=== PATIENT | female | born 1955 | race Caucasian/White ===

== ENCOUNTER 2019-01-17 11:45 | Outpatient (CLI) | payer OTHER ==
--- NOTE | 2019-01-18 11:30 | XRAY Report ---
Reason: LOW BACK PAIN, M54.5 Procedure Date: 01/17/2019 Accession Number: [id number] / [id number] Procedure: XRS - Lumbar Spine 2 View CPT Code: FULL RESULT: EXAM: LUMBOSACRAL SPINE RADIOGRAPHY EXAM DATE: 01/17/2019 11:55 AM. CLINICAL HISTORY: Low back pain, M54. 5. COMPARISONS: None. TECHNIQUE: 3 views. FINDINGS: Alignment: Normal. No spondylolisthesis or scoliosis. Bones: 6 [id number] lumbar vertebral bodies are present. No fractures or bone lesions. Disks: Mild narrowing of the disk space heights in the lower lumbar spine. Facets: Mild to moderate bilateral hypertrophic changes in the lower lumbar spine. Sacroiliac Joints: Unremarkable. Soft Tissues: Normal. The visualized bowel gas pattern is normal. IMPRESSION: Mild to moderate degenerative changes lower lumbar spine. RADIA
== END 2019-01-17 11:46 | disposition home or self-care (01) ==
LOC: DI.S 11:45
PROVIDERS: ATTEND Naturopath
DX: M51.36 Other intervertebral disc degeneration, lumbar region (principal)
CPT/HCPCS: 72100

== ENCOUNTER 2019-02-22 10:01 | Outpatient (CLI) | payer OTHER ==
[2019-02-22 17:57] LABS: HB2 TOTAL 13.7 g/dL; HEMOGLOBIN A1C 0.54 g/dL; HEMOGLOBIN A1C % 5.8 % (4.6-6.2)
[2019-02-22 18:01] LABS: BASOPHILS % (AUTO) 0.7 %; EOSINOPHILS # (AUTO) 0.1 10^3/uL (0.0-0.7); EOSINOPHILS % (AUTO) 2.2 %; HGB - HEMOGLOBIN 13.3 g/dL (12.0-16.0); LYMPHOCYTES # (AUTO) 1.6 10^3/uL (1.5-3.5); LYMPHOCYTES % (AUTO) 28.4 %; MEAN CORPUSCULAR HEMOGLOBIN 28.8 pg (27.0-31.0); MEAN CORPUSCULAR HGB CONC 31.7 g/dL (32.0-36.0); MEAN CORPUSCULAR VOLUME 90.9 fL (81.0-99.0); MEAN PLATELET VOLUME 11.6 fL (7.9-10.8); MONOCYTES # (AUTO) 0.6 10^3/uL (0.0-1.0); MONOCYTES % (AUTO) 10.6 %; NEUTROPHILS # (AUTO) 3.2 10^3/uL (1.5-6.6); NEUTROPHILS % (AUTO) 57.6 %; PLT - PLATELET COUNT 269 10^3/uL (130-450); RED BLOOD COUNT 4.62 10^6/uL (4.20-5.40); RED CELL DISTRIBUTION WIDTH 14.6 % (12.0-15.0); WHITE BLOOD COUNT 5.6 x10^3/uL (4.8-10.8)
[2019-02-22 18:02] LABS: ALBUMIN 4.1 g/dL (3.2-5.5); ALBUMIN/GLOBULIN RATIO 1.3 (1.0-2.2); ALKALINE PHOSPHATASE 60 IU/L (42-121); ALT ALANINE AMINOTRANSFERASE 34 IU/L (10-60); AST ASPARTATE AMINOTRANSFERASE 28 IU/L (10-42); BILIRUBIN,TOTAL 0.6 mg/dL (0.2-1.0); BUN - BLOOD UREA NITROGEN 11 mg/dL (6-20); CALCIUM 9.2 mg/dL (8.5-10.3); CARBON DIOXIDE - CO2 28 mmol/L (21-32); CHLORIDE 103 mmol/L (101-111); CHOL/HDL RATIO 4.5 (<4.4); CHOLESTEROL 232 mg/dL; CREATININE 0.7 mg/dL (0.4-1.0); GFR - MDRD 85 (>89); GLUCOSE 106 mg/dL (70-100); HDL CHOLESTEROL 51 mg/dL; LDL CHOLESTEROL,CALCULATED 137 mg/dL; LDL/HDL RATIO 2.7 (<4.4); SODIUM 139 mmol/L (135-145); TOTAL PROTEIN 7.2 g/dL (6.7-8.2); VLDL CHOLESTEROL 44 mg/dL
[2019-02-22 18:08] LABS: THYROID STIMULATING HORMONE 3.27 uIU/mL (0.34-5.60)
[2019-02-22 18:10] LABS: FREE T4 (FREE THYROXINE) 0.72 ng/dL (0.58-1.64)
== END 2019-02-22 10:02 | disposition home or self-care (01) ==
LOC: LAB.S 10:01
PROVIDERS: ATTEND Naturopath
DX: Z00.00 Encounter for general adult medical examination without abnormal findings (principal); Z13.0 Encounter for screening for diseases of the blood and blood-forming organs and certain disorders involving the immune mechanism; Z13.220 Encounter for screening for lipoid disorders; Z13.1 Encounter for screening for diabetes mellitus; Z13.29 Encounter for screening for other suspected endocrine disorder
CPT/HCPCS: 36415; 80053; 80061; 83036; 83721; 84439; 84443; 84481; 85025

== ENCOUNTER 2021-03-15 14:56 | Outpatient (CLI) | payer MEDICARE ==
[2021-03-15 21:14] LABS: THYROID STIMULATING HORMONE 3.22 uIU/mL (0.34-5.60)
[2021-03-15 21:15] LABS: FREE T3 4.05 pg/mL (2.5-3.9)
[2021-03-15 21:16] LABS: FREE T4 (FREE THYROXINE) 0.72 ng/dL (0.58-1.64)
== END 2021-03-15 14:57 | disposition home or self-care (01) ==
LOC: LAB.S 14:56
PROVIDERS: ATTEND Naturopath
DX: Z13.29 Encounter for screening for other suspected endocrine disorder (principal)
CPT/HCPCS: 36415; 84439; 84443; 84481

== ENCOUNTER 2021-10-02 09:38 | Outpatient (CLI) | payer MEDICARE ==
[2021-10-02 15:04] LABS: T4 (THYROXINE) 12.23 ug/dL (6.09-12.23)
[2021-10-02 15:07] LABS: THYROID STIMULATING HORMONE 1.12 uIU/mL (0.34-5.60)
== END 2021-10-02 09:39 | disposition home or self-care (01) ==
LOC: LAB.S 09:38
PROVIDERS: ATTEND Registered Nurse
DX: E03.9 Hypothyroidism, unspecified (principal)
CPT/HCPCS: 36415; 84436; 84443; 84480

== ENCOUNTER 2021-11-04 13:08 | Outpatient (CLI) | payer MEDICARE ==
--- NOTE | 2021-11-07 07:57 | Mammography Report ---
BILATERAL DIGITAL SCREENING MAMMOGRAM 3D/2D WITH EXAGGERATED CC: 11/04/2021 CLINICAL: Routine screening. Comparison is made to exams dated: 11/02/2014 mammogram, 10/20/2014 mammogram, and 09/10/2009 mammogram - [facility]. The tissue of both breasts is predominantly fatty. No significant masses, calcifications, or other findings are seen in either breast. There has been no significant interval change. IMPRESSION: NEGATIVE There is no mammographic evidence of malignancy. A 1 year screening mammogram is recommended. This exam was interpreted at Station ID: [id number]. NOTE: For mammograms, a report in lay terms will be sent to the patient. Approximately 15% of breast malignancies will not be visualized mammographically. In the management of a palpable breast mass, a negative mammogram must not discourage biopsy of a clinically suspicious lesion. Electronically Signed By: Estrada Daniels M.D., jr/juliannerad:11/06/2021 14:21:45 ACR BI-RADS Category 1: Negative 3341F PARENCHYMAL PATTERN: (F) - The breast(s) demonstrate(s) diffuse fatty replacement. BI-RADS CATEGORY: (1) - 1 RECOMMENDATION: (ANNUAL) - Recommend routine annual screening mammography. [id number] 1 year screening LATERALITY: (B)
== END 2021-11-04 13:09 | disposition home or self-care (01) ==
LOC: DI.S 13:08
PROVIDERS: ATTEND Registered Nurse
DX: Z12.31 Encounter for screening mammogram for malignant neoplasm of breast (principal)

== ENCOUNTER 2022-06-13 09:49 | Outpatient (CLI) | payer MEDICARE ==
--- NOTE | 2022-06-13 16:30 | MRI Report ---
PROCEDURE: SHOULDER WO - RT INDICATIONS: STRAIN OF SHOULDER TECHNIQUE: Noncontrast oblique coronal T2 fast spin echo with fat saturation, oblique sagittal T1 spin echo and T2 fast spin echo with fat saturation, axial T1 spin echo and T2 fast spin echo with fat saturation t hrough the shoulder. COMPARISON: None. FINDINGS: Image quality: Excellent. Rotator cuff: There is full-thickness tearing of the entire supraspinatus tendon with medial retracti on and atrophy of the supraspinatus. There is moderate grade bursal surface and intrasubstance tearin g of the mid and anterior infraspinatus tendon at the humeral insertion site extending the muscular t endinous junction. There is moderate grade articular surface and intrasubstance tearing of the upper subscapularis tendon at the humeral insertion site extending to the muscular tendinous junction. Kathleen s minor is intact. Bones and bursae: No bone marrow contusions or fractures. Moderate glenohumeral and acromioclavicula r joint degeneration. The acromion demonstrates conventional anatomy, without an os acromiale. No p athologic subacromial/subdeltoid bursal fluid is present. Capsule and soft tissues: There is irregular high T2 signal intensity within the posterior superior l abrum. The long head of the biceps tendon demonstrates normal location and morphology. The rotator i nterval appears normal, without fibrosis. The coracohumeral ligament is normal in thickness. IMPRESSION: 1. Full-thickness tearing of the supraspinatus tendon with associated atrophy. 2. Partial-thickness tearing of the infraspinatus and subscapularis tendons. 3. Posterior superior glenoid labral tearing. 4. Acromioclavicular joint osteoarthritis. Reviewed by: David Prakash MD on 06/13/2022 4:29 PM PST Approved by: David Prakash MD on 06/13/2022 4:29 PM PST Station ID: [id number]
== END 2022-06-13 09:50 | disposition home or self-care (01) ==
LOC: DI 09:49
PROVIDERS: ATTEND Physician Assistant
DX: S46.011A Strain of muscle(s) and tendon(s) of the rotator cuff of right shoulder, initial encounter (principal); M19.011 Primary osteoarthritis, right shoulder; S43.431A Superior glenoid labrum lesion of right shoulder, initial encounter

== ENCOUNTER 2022-12-31 08:53 | Outpatient (CLI) | payer MEDICARE ==
[2022-12-31 14:45] LABS: BASOPHILS # (AUTO) 0.1 10^3/uL (0.0-0.1); BASOPHILS % (AUTO) 1.1 %; EOSINOPHILS # (AUTO) 0.2 10^3/uL (0.0-0.7); EOSINOPHILS % (AUTO) 3.8 %; HGB - HEMOGLOBIN 13.3 g/dL (12.0-16.0); LYMPHOCYTES # (AUTO) 1.9 10^3/uL (1.5-3.5); LYMPHOCYTES % (AUTO) 31.8 %; MEAN CORPUSCULAR HEMOGLOBIN 28.7 pg (27.0-31.0); MEAN CORPUSCULAR HGB CONC 31.7 g/dL (32.0-36.0); MEAN CORPUSCULAR VOLUME 90.5 fL (81.0-99.0); MEAN PLATELET VOLUME 11.2 fL (7.9-10.8); MONOCYTES # (AUTO) 0.5 10^3/uL (0.0-1.0); MONOCYTES % (AUTO) 8.2 %; NEUTROPHILS # (AUTO) 3.4 10^3/uL (1.5-6.6); NEUTROPHILS % (AUTO) 54.9 %; PLT - PLATELET COUNT 283 10^3/uL (130-450); RED BLOOD COUNT 4.64 10^6/uL (4.20-5.40); RED CELL DISTRIBUTION WIDTH 13.9 % (12.0-15.0); WHITE BLOOD COUNT 6.1 x10^3/uL (4.8-10.8)
[2022-12-31 15:55] LABS: ALBUMIN 4.3 g/dL (3.2-5.5); ALBUMIN/GLOBULIN RATIO 1.5 (1.0-2.2); ALKALINE PHOSPHATASE 65 IU/L (42-121); ALT ALANINE AMINOTRANSFERASE 24 IU/L (10-60); AST ASPARTATE AMINOTRANSFERASE 21 IU/L (10-42); BILIRUBIN,TOTAL 0.4 mg/dL (0.2-1.0); BUN - BLOOD UREA NITROGEN 15 mg/dL (6-20); CALCIUM 9.8 mg/dL (8.5-10.3); CARBON DIOXIDE - CO2 30 mmol/L (21-32); CHLORIDE 105 mmol/L (101-111); CHOL/HDL RATIO 4.6 (<4.4); CHOLESTEROL 223 mg/dL; CREATININE 0.7 mg/dL (0.6-1.3); GFR - MDRD 84 (>89); GLUCOSE 105 mg/dL (74-104); HDL CHOLESTEROL 48 mg/dL; LDL CHOLESTEROL,CALCULATED 129 mg/dL; LDL/HDL RATIO 2.7 (<4.4); SODIUM 139 mmol/L (135-145); TOTAL PROTEIN 7.2 g/dL (6.4-8.9); TRIGLYCERIDES 230 mg/dL (48-352); VLDL CHOLESTEROL 46 mg/dL
== END 2022-12-31 08:54 | disposition home or self-care (01) ==
LOC: LAB.S 08:53
PROVIDERS: ATTEND Registered Nurse
DX: E03.9 Hypothyroidism, unspecified (principal); Z79.899 Other long term (current) drug therapy; Z13.220 Encounter for screening for lipoid disorders
CPT/HCPCS: 36415; 80053; 80061; 83721; 84443; 85025

== ENCOUNTER 2024-01-01 08:20 | Outpatient (CLI) | payer MEDICARE ==
[2024-01-01 15:35] LABS: BASOPHILS # (AUTO) 0.1 10^3/uL (0.0-0.1); BASOPHILS % (AUTO) 1.2 %; EOSINOPHILS # (AUTO) 0.2 10^3/uL (0.0-0.7); EOSINOPHILS % (AUTO) 3.9 %; LYMPHOCYTES # (AUTO) 1.9 10^3/uL (1.5-3.5); LYMPHOCYTES % (AUTO) 32.2 %; MEAN CORPUSCULAR HEMOGLOBIN 28.9 pg (27.0-31.0); MEAN CORPUSCULAR HGB CONC 32.6 g/dL (32.0-36.0); MEAN CORPUSCULAR VOLUME 88.8 fL (81.0-99.0); MEAN PLATELET VOLUME 11.5 fL (7.9-10.8); MONOCYTES # (AUTO) 0.4 10^3/uL (0.0-1.0); MONOCYTES % (AUTO) 7.4 %; NEUTROPHILS # (AUTO) 3.3 10^3/uL (1.5-6.6); PLT - PLATELET COUNT 283 10^3/uL (130-450); RED BLOOD COUNT 4.84 10^6/uL (4.20-5.40); RED CELL DISTRIBUTION WIDTH 14.2 % (12.0-15.0); WHITE BLOOD COUNT 5.9 x10^3/uL (4.8-10.8)
[2024-01-01 16:38] LABS: ALBUMIN 4.4 g/dL (3.2-5.5); ALBUMIN/GLOBULIN RATIO 1.4 (1.0-2.2); ALKALINE PHOSPHATASE 66 IU/L (42-121); ALT ALANINE AMINOTRANSFERASE 24 IU/L (10-60); AST ASPARTATE AMINOTRANSFERASE 25 IU/L (10-42); BILIRUBIN,TOTAL 0.5 mg/dL (0.2-1.0); BUN - BLOOD UREA NITROGEN 11 mg/dL (6-20); CALCIUM 10.2 mg/dL (8.5-10.3); CARBON DIOXIDE - CO2 27 mmol/L (21-32); CHLORIDE 104 mmol/L (101-111); CHOL/HDL RATIO 4.5 (<4.4); CHOLESTEROL 226 mg/dL; CREATININE 0.7 mg/dL (0.6-1.3); GFR - MDRD 83 (>89); GLUCOSE 98 mg/dL (74-104); HDL CHOLESTEROL 50 mg/dL; LDL CHOLESTEROL,CALCULATED 136 mg/dL; LDL/HDL RATIO 2.7 (<4.4); POTASSIUM 4.1 mmol/L (3.5-4.5); SODIUM 140 mmol/L (135-145); TOTAL PROTEIN 7.6 g/dL (6.4-8.9); TRIGLYCERIDES 201 mg/dL; VLDL CHOLESTEROL 40 mg/dL
[2024-01-01 16:47] LABS: THYROID STIMULATING HORMONE 1.39 uIU/mL (0.34-5.60)
== END 2024-01-01 08:21 | disposition home or self-care (01) ==
LOC: LAB.S 08:20
PROVIDERS: ATTEND Registered Nurse
DX: I10 Essential (primary) hypertension (principal); E03.9 Hypothyroidism, unspecified
CPT/HCPCS: 36415; 80053; 80061; 83721; 84443; 85025

== ENCOUNTER 2024-02-09 08:28 | Day surgery (SDC) | payer MEDICARE ==
[2024-02-09 08:56] LABS: BILIRUBIN,URINE NEGATIVE (NEGATIVE); GLUCOSE, URINE (UA) NEGATIVE (NEGATIVE); KETONES,URINE (UA) 15 mg/dL (NEGATIVE); LEUKOCYTE ESTERASE, URINE NEGATIVE (NEGATIVE); NITRITE,URINE NEGATIVE (NEGATIVE); OCCULT BLOOD,URINE TRACE-LYSE (NEGATIVE); PROTEIN,URINE TRACE mg/dL (NEGATIVE); UROBILINOGEN,URINE 0.2 (NORMAL) E.U./dL (NORMAL)
[2024-02-09 08:59] LABS: CLARITY,URINE CLEAR (CLEAR)
[2024-02-09 09:00] LABS: BASOPHILS % (AUTO) 0.3 %; EOSINOPHILS # (AUTO) 0.1 10^3/uL (0.0-0.7); EOSINOPHILS % (AUTO) 0.7 %; HCT - HEMATOCRIT 41.6 % (37.0-47.0); HGB - HEMOGLOBIN 13.3 g/dL (12.0-16.0); LYMPHOCYTES # (AUTO) 1.1 10^3/uL (1.5-3.5); LYMPHOCYTES % (AUTO) 10.1 %; MEAN CORPUSCULAR HEMOGLOBIN 28.4 pg (27.0-31.0); MEAN CORPUSCULAR VOLUME 88.7 fL (81.0-99.0); MEAN PLATELET VOLUME 10.8 fL (7.9-10.8); MONOCYTES # (AUTO) 0.6 10^3/uL (0.0-1.0); MONOCYTES % (AUTO) 5.6 %; NEUTROPHILS # (AUTO) 9.2 10^3/uL (1.5-6.6); NEUTROPHILS % (AUTO) 82.8 %; PLT - PLATELET COUNT 281 10^3/uL (130-450); RED BLOOD COUNT 4.69 10^6/uL (4.20-5.40); RED CELL DISTRIBUTION WIDTH 13.5 % (12.0-15.0); WHITE BLOOD COUNT 11.1 x10^3/uL (4.8-10.8)
[2024-02-09 09:14] LABS: ALBUMIN 4.7 g/dL (3.2-5.5); ALBUMIN/GLOBULIN RATIO 1.6 (1.0-2.2); BILIRUBIN,TOTAL 0.4 mg/dL (0.2-1.0); CALCIUM 9.9 mg/dL (8.5-10.3); CREATININE 0.7 mg/dL (0.6-1.3); POTASSIUM 3.6 mmol/L (3.5-4.5); TOTAL PROTEIN 7.6 g/dL (6.4-8.9)
[2024-02-09] MEDS: KETOROLAC 30 MG/ML VIAL IVP STA (09:18)
--- NOTE | 2024-02-09 09:19 | ED Physician Documentation ---
PD HPI ABD PAIN - Stated complaint Stated Complaint: UPPER ABD PX,VOMITING - Chief complaint Chief Complaint: Abd Pain - History obtained from History obtained from: Patient, Family () - History of Present Illness Timing - onset: How many days ago (3) Timing - duration: Days (3) Timing - details: Abrupt onset, Still present, Waxing and waning Quality: Cramping, Sharp, Pain Location: Epigastric Radiation: Chest Improved by: Vomiting Worsened by: Eating, Position, Palpation Associated symptoms: Nausea Similar symptoms before: No diagnosis Recently seen: Not recently seen - Additional information Additional information: Vidya [place] is a 69-year-old female who presents with a 3-day history of epigastric pain that last 4 to 5 hours and is brought on by food. She has had an episode of this about 1 week ago and then over the last 3 days she has had another episode followed by an episode that will not resolve. She denies any significant alcohol use and states that she did remember an episode similar to this about 6 months ago as well. She has a history of reflux and does not take medication for it. Review of Systems Constitutional: denies: Fever Ears: denies: Ear pain Nose: denies: Congestion Throat: denies: Sore throat Cardiac: denies: Chest pain / pressure, Palpitations Respiratory: denies: Dyspnea, Cough GI: reports: Abdominal Pain, Nausea. 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 : None HEENT: None Psych: None Musculoskeletal: Chronic back pain Derm: None - Past Surgical History Past Surgical History: No /INSPECTOR TUBES: Breast reduction - Present Medications Home Medications: Ambulatory Orders Medication Instructions Recorded Confirmed Cyclobenzaprine [Flexeril] 10 mg PO TID PRN 02/09/24 02/09/24 Levothyroxine [Synthroid] 100 mcg PO QDAC 02/09/24 02/09/24 Lisinopril/Hydrochlorothiazide 1 each PO DAILY 02/09/24 02/09/24 [Zestoretic 10-12.5 mg Tablet] Metoprolol Tartrate [Lopressor] 25 mg PO BID 02/09/24 02/09/24 - Allergies Allergies/Adverse Reactions: Allergies Allergy/AdvReac Type Severity Reaction Status Date / Time No Known Drug Allergies Allergy Verified 02/09/24 08:33 - Social History Does the pt smoke?: No Smoking Status: Never smoker Does the pt drink ETOH?: Yes Does the pt have substance abuse?: Yes Substance Use and Type: Marijuana - Immunizations Immunizations are current?: Yes - POLST Patient has POLST: No PD ED PE NORMAL - Vitals Vital signs reviewed: Yes (hypertensive ) - General General: Alert and oriented X 3, No acute distress, Well developed/nourished - HEENT HEENT: Atraumatic, PERRL, EOMI - Neck Neck: Supple, no meningeal sign, No bony TTP - Cardiac Cardiac: RRR, No murmur - Respiratory Respiratory: No respiratory distress, Clear bilaterally - Abdomen Abdomen: Soft, Non distended, No organomegaly, Other (The patient is tender in the right upper quadrant to deep palpation and she is tender in the epigastric region as well there is no guarding associated with this tenderness.) - Back Back: No CVA TTP, No spinal TTP - Derm Derm: Normal color, Warm and dry, No rash - Extremities Extremities: No deformity, No edema - Neuro Neuro: Alert and oriented X 3, electric motor analyst 2-12 intact, No motor deficit, No sensory deficit, Normal speech Eye Opening: Spontaneous Motor: Obeys Commands Verbal: Oriented GCS Score: 15 - Psych Psych: Normal mood, Normal affect Results - Vitals Vitals: Vital Signs - 24 hr 02/09/24 02/09/24 02/09/24 08:33 09:02 10:12 Temperature 36.6 C 37.2 C Heart Rate 66 61 58 L Respiratory 18 16 16 Rate Blood Pressure 197/97 H 178/89 H 165/81 H O2 Saturation 98 96 95 02/09/24 12:11 Temperature Heart Rate 64 Respiratory 16 Rate Blood Pressure 104/70 O2 Saturation 98 Oxygen O2 Source Room air - Labs Labs: Laboratory Tests 02/09/24 02/09/24 02/09/24 08:50 08:50 08:50 WBC 11.1 H RBC 4.69 Hgb 13.3 Hct 41.6 MCV 88.7 MCH 28.4 MCHC 32.0 RDW 13.5 Plt Count 281 MPV 10.8 Neut # (Auto) 9.2 H Lymph # (Auto) 1.1 L [place] # (Auto) 0.6 Eos # (Auto) 0.1 Baso # (Auto) 0.0 Absolute Nucleated RBC 0.00 Nucleated RBC % 0.0 Sodium 137 Potassium 3.6 Chloride 101 Carbon Dioxide 28 Anion Gap 8.0 BUN 12 Creatinine 0.7 Estimated GFR (MDRD) 83 L Glucose 131 H Calcium 9.9 Total Bilirubin 0.4 AST 21 ALT 21 Alkaline Phosphatase 66 Total Protein 7.6 Albumin 4.7 Globulin 2.9 Albumin/Globulin Ratio 1.6 Lipase 22 Urine Color DARK YELLOW Urine Clarity CLEAR Urine pH 7.0 Ur Specific [place] 1.025 Urine Protein TRACE Urine Glucose (UA) NEGATIVE Urine Ketones 15 H Urine Occult Blood TRACE-LYSE Urine Nitrite NEGATIVE Urine Bilirubin NEGATIVE Urine Urobilinogen 0.2 (NORMAL) Ur Leukocyte Esterase NEGATIVE Ur Microscopic Review NOT INDICATED Urine Culture Comments NOT INDICATED - Rads (name of study) ultrasound abd lmt Relevant Findings:: Prelim report reviewed (Impression: Cholelithiasis with gallbladder wall thickening and pericholecystic fluid. Positive sonographic Logan sign. Finding is consistent with acute cholecystitis. No biliary ductal dilation. Hepatomegaly and moderate hepatic steatosis), EMP independent interpretation of test, See rad report Procedures - Bedside sono Bedside sono by EMP: With use of POCUS the right upper quadrant is imaged there is an appearance of shadowing stones and a question of some pericholecystic fluid. The gallbladder is tender to sonographic palpation Logan sign is negative. PD Medical Decision Making - ED course Complexity details: reviewed results, re-evaluated patient, considered differential, d/w patient, d/w family, d/w franchise business consultant (Dr. Baca will see patient at about noon today. If pain resolved and PO challenge keya well ) Reviewed Lab Results: We reviewed a complete blood count showing an elevated white blood cell count and normal hemoglobin hematocrit and platelets chemistries were unremarkable with normal electrolytes normal kidney and liver function. Urinalysis unremarkable with exception of ketones. These laboratory tests support the diagnosis of acute cholecystitis without signs of obtruction. They also indicate the patient's recent lack of food with elevated ketones in the urine. ED course: 69-year-old Geraldine france was diagnosed with acute cholecystitis she has improvement in her pain with the use of Toradol and the surgeon has been consulted in her case. The surgeon recommends observation after pain medication has worn off for potential of outpatient cholecystectomy. The patient continues to have pain, the surgeon evaluates the patient and arrangements are being made for surgery today. She is given a dose of cefepime and IV fliuds and requires further pain management. Departure - Departure Disposition: ED Transfer to [facility] Clinical Impression: Cholecystitis Condition: Stable Forms: PCP List
--- NOTE | 2024-02-09 10:22 | Ultrasound Report ---
PROCEDURE: Abdomen Limited INDICATIONS: RUQ pain and heart burn in episodes TECHNIQUE: Real-time focused scanning was performed of the abdomen, with image documentation. COMPARISONS: None. FINDINGS: Liver: Liver is enlarged in size and is diffusely echogenic in parenchymal echotexture. No discrete s olid appearing hepatic lesion is seen.. Gallbladder: Stones are seen in dependent portion of gallbladder lumen. There is gallbladder wall thi ckening measures up to 4.7 mm in thickness. Pericholecystic fluid is seen. Positive sonographic Rosie y's sign is noted during the exam. Biliary ducts: Intrahepatic bile ducts are non-dilated. Extrahepatic bile duct caliber measures 4.6 mm. Normal is 6-7 mm or less in diameter, or 10 mm or less post-cholecystectomy. Pancreas: Visualized portions of the pancreas are sonographically normal. Right kidney: Normal in size and echotexture. Right kidney measures 12.4 cm long. No hydronephrosis or nephrolithiasis. No solid masses. No complex renal cystic lesions which require follow-up. IVC: Intrahepatic inferior vena cava is patent. Miscellaneous: No free abdominal fluid. IMPRESSION: 1. Cholelithiasis with gallbladder wall thickening and pericholecystic fluid. Positive sonographic Mu rphy's sign. Finding is consistent with acute cholecystitis. 2. No biliary ductal dilatation. 3. Hepatomegaly and moderate hepatic steatosis. Reviewed by: Darnell Sanches MD on 02/09/2024 10:20 AM PDT Approved by: Darnell Sanches MD on 02/09/2024 10:20 AM PDT Station ID: [id number]
[2024-02-09] MEDS: SODIUM CHLORIDE 0.9% 1,000 ML IV STA (12:42)
[2024-02-09] MEDS: CEFEPIME 1 GM in SODIUM CHLORIDE 0.9% MINIBAG 100 ML IV STA (12:42)
[2024-02-09] MEDS: HYDROmorphone 1 MG/ML CARPUJECT IVP STA (12:50)
--- NOTE | 2024-02-09 12:50 | HISTORY & PHYSICAL EXAMINATION ---
HPI - Admitted From Admitted from: ED - History Obtained From History obtained from: Patient Exam limitations: No limitations - History of Present Illness HPI Comment/Other: 69yoF with 2 days of RUQ pain that is unrelenting, worst at night, and associated with nausea and emesis. Similar episode happened last week that lasted 4 hours, and maybe one other time 6 months ago. Denies fevers, some chills in the ED. Pain more tolerable with pain meds in the ED, but not resolved. 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 - Social History Does the pt smoke?: No Smoking Status: Never smoker Does the pt drink ETOH?: Yes Does the pt have substance abuse?: Yes Substance Use and Type: Marijuana - POLST Patient has POLST: No Meds/Allgy - Home Medications Home Medications: Ambulatory Orders Medication Instructions Recorded Confirmed Cyclobenzaprine [Flexeril] 10 mg PO TID PRN 02/09/24 02/09/24 Levothyroxine [Synthroid] 100 mcg PO QDAC 02/09/24 02/09/24 Lisinopril/Hydrochlorothiazide 1 each PO DAILY 02/09/24 02/09/24 [Zestoretic 10-12.5 mg Tablet] Metoprolol Tartrate [Lopressor] 25 mg PO BID 02/09/24 02/09/24 - Allergies Allergies/Adverse Reactions: Allergies Allergy/AdvReac Type Severity Reaction Status Date / Time No Known Drug Allergies Allergy Verified 02/09/24 08:33 Review of Systems - Gastrointestinal Gastrointestinal: reports: Abdominal pain, Nausea, Vomiting Exam - Vital Signs Reviewed Vital Signs: Yes Vital Signs: Vital Signs x48h Temp Pulse Resp BP Pulse Ox 02/09/24 12:11 64 16 104/70 98 02/09/24 10:12 37.2 C 58 L 16 165/81 H 95 02/09/24 09:02 61 16 178/89 H 96 02/09/24 08:33 36.6 C 66 18 197/97 H 98 - Physical Exam General Appearance: positive: No acute distress, Alert ENT: positive: ENT inspection nml Neck: positive: Nml inspection Cardiovascular: positive: Regular rate & rhythm Peripheral Pulses: positive: 2+ Abdomen: positive: No distention, Tenderness (RUQ ttp, murpheys sign +) Skin: positive: Color nml Extremities: positive: Full ROM Neurologic/Psychiatric: positive: Oriented x3 Results - Lab Results Lab results reviewed: Yes Fish Bones: 02/09/24 08:50 02/09/24 08:50 Other Lab Results: Lab Results x24hrs 02/09/24 02/09/24 02/09/24 Range/Units 08:50 08:50 08:50 WBC 11.1 H (4.8-10.8) x10^3/uL RBC 4.69 (4.20-5.40) 10^6/uL Hgb 13.3 (12.0-16.0) g/dL Hct 41.6 (37.0-47.0) % MCV 88.7 (81.0-99.0) fL MCH 28.4 (27.0-31.0) pg MCHC 32.0 (32.0-36.0) g/dL RDW 13.5 (12.0-15.0) % Plt Count 281 (130-450) 10^3/uL MPV 10.8 (7.9-10.8) fL Neut # (Auto) 9.2 H (1.5-6.6) 10^3/uL Lymph # (Auto) 1.1 L (1.5-3.5) 10^3/uL [place] # (Auto) 0.6 (0.0-1.0) 10^3/uL Eos # (Auto) 0.1 (0.0-0.7) 10^3/uL Baso # (Auto) 0.0 (0.0-0.1) 10^3/uL Absolute Nucleated RBC 0.00 x10^3/uL Nucleated RBC % 0.0 /100WBC Sodium 137 (135-145) mmol/L Potassium 3.6 (3.5-4.5) mmol/L Chloride 101 (101-111) mmol/L Carbon Dioxide 28 (21-32) mmol/L Anion Gap 8.0 (6-13) BUN 12 (6-20) mg/dL Creatinine 0.7 (0.6-1.3) mg/dL Estimated GFR (MDRD) 83 L (>89) Glucose 131 H (74-104) mg/dL Calcium 9.9 (8.5-10.3) mg/dL Total Bilirubin 0.4 (0.2-1.0) mg/dL AST 21 (10-42) IU/L ALT 21 (10-60) IU/L Alkaline Phosphatase 66 (42-121) IU/L Total Protein 7.6 (6.4-8.9) g/dL Albumin 4.7 (3.2-5.5) g/dL Globulin 2.9 (2.1-4.2) g/dL Albumin/Globulin Ratio 1.6 (1.0-2.2) Lipase 22 (11-82) U/L Urine Color DARK YELLOW Urine Clarity CLEAR (CLEAR) Urine pH 7.0 (5.0-7.5) PH Ur Specific [place] 1.025 (1.002-1.030) Urine Protein TRACE (NEGATIVE) mg/dL Urine Glucose (UA) NEGATIVE (NEGATIVE) mg/dL Urine Ketones 15 H (NEGATIVE) mg/dL Urine Occult Blood TRACE-LYSE (NEGATIVE) Urine Nitrite NEGATIVE (NEGATIVE) Urine Bilirubin NEGATIVE (NEGATIVE) Urine Urobilinogen 0.2 (NORMAL) (NORMAL) E.U./dL Ur Leukocyte Esterase NEGATIVE (NEGATIVE) Ur Microscopic Review NOT INDICATED Urine Culture Comments NOT INDICATED - Diagnostic Imaging Results Diagnostic Imaging Results: positive: Final report reviewed Diagnostic Imaging Results Comments: RUQUS with cholelithiasis, GBW 4.7mm, + PCF, + sonographic murpheys sign, CBD 4.7 Impression/Plan - Problem List Problem List: 69yoF with acute cholecystitis. Hypertensive in ED which has improved somewhat with paincontrol, otherwise no tachycardia or fever. WBC 11 and LFTs normal, RUQUS c/w acute cholecystitis without CBD dilation. Discussed nature of diagnosis and recommendation for surgery. Discussed risks of laparoscopic cholecystectomy to include pain, bleeding, infection, bile leak, retained stone, CBD injury, OH, CVA, PE, . She understands and would like to proceed. - abx and IVF in ED - laparoscopic cholecystectomy this afternoon (~4pm) - same day surgery Keri Baca DO, FACS General Surgeon, Max
[2024-02-09] MEDS: ONDANSETRON 4 MG/2 ML VIAL IVP STA (12:51)
[2024-02-09] MEDS ORDERED: fentaNYL 100 MCG/2 ML VIAL IVP PRN ×2 (13:59→18:12)
[2024-02-09] MEDS ORDERED: METOCLOPRAMIDE 10 MG/2 ML VIAL IVP PRN ×2 (13:59→18:12)
[2024-02-09] MEDS ORDERED: NALOXONE 0.4 MG/ML VIAL IVP PRN ×2 (13:59→18:12)
[2024-02-09] MEDS ORDERED: ONDANSETRON 4 MG/2 ML VIAL IVP PRN ×3 (13:59→18:34)
[2024-02-09] MEDS ORDERED: HYDROmorphone 0.5 MG/0.5 ML SYRINGE IVP PRN ×2 (13:59→18:12)
[2024-02-09] MEDS ORDERED: MORPHINE 2 MG/ML CARPUJECT IVP PRN ×2 (13:59→18:12)
[2024-02-09] MEDS ORDERED: ATROPINE ABBOJECT 1 MG/10 ML SYRINGE IVP PRN ×2 (13:59→18:12)
[2024-02-09] MEDS ORDERED: ePHEDrine 50 MG/ML VIAL IVP PRN ×2 (13:59→18:12)
--- NOTE | 2024-02-09 13:59 | ANESTHESIA ---
Pre-Anesthesia VS, & Labs - Diagnosis acute cholecystitis - Procedure lap cholecystectomy Vital Signs: Temp Pulse Resp BP Pulse Ox O2 Flow Rate 37.2 C 64 16 104/70 98 02/09/24 10:12 02/09/24 12:11 02/09/24 12:11 02/09/24 12:11 02/09/24 12:11 Height: 5 ft 8.5 in Weight (kg): 104.78 kg Body Mass Index: 34.6 BMI Classification: Obese - NPO >8 hours - Is Patient ?: No - Lab Results Current Lab Results: Laboratory Tests 02/09/24 08:50: Sodium 137, Potassium 3.6, Chloride 101, Carbon Dioxide 28, Anion Gap 8.0, BUN 12, Creatinine 0.7, Estimated GFR (MDRD) 83 L, Glucose 131 H, Calcium 9.9, Total Bilirubin 0.4, AST 21, ALT 21, Alkaline Phosphatase 66, Total Protein 7.6, Albumin 4.7, Globulin 2.9, Albumin/Globulin Ratio 1.6, Lipase 22 02/09/24 08:50: WBC 11.1 H, RBC 4.69, Hgb 13.3, Hct 41.6, MCV 88.7, MCH 28.4, MCHC 32.0, RDW 13.5, Plt Count 281, MPV 10.8, Neut # (Auto) 9.2 H, Lymph # (Auto) 1.1 L, [place] # (Auto) 0.6, Eos # (Auto) 0.1, Baso # (Auto) 0.0, Absolute Nucleated RBC 0.00, Nucleated RBC % 0.0 Fish Bones: 02/09/24 08:50 02/09/24 08:50 Home Medications and Allergies Home Medications: Ambulatory Orders Cyclobenzaprine [Flexeril] 10 mg PO TID PRN 02/09/24 Levothyroxine [Synthroid] 100 mcg PO QDAC 02/09/24 Lisinopril/Hydrochlorothiazide [Zestoretic 10-12.5 mg Tablet] 1 each PO DAILY 02/09/24 Metoprolol Tartrate [Lopressor] 25 mg PO BID 02/09/24 Cyclobenzaprine [Flexeril] 10 mg PO TID PRN 02/09/24 Levothyroxine [Synthroid] 100 mcg PO QDAC 02/09/24 Lisinopril/Hydrochlorothiazide [Zestoretic 10-12.5 mg Tablet] 1 each PO DAILY 02/09/24 Metoprolol Tartrate [Lopressor] 25 mg PO BID 02/09/24 Allergies/Adverse Reactions: Allergies Allergy/AdvReac Type Severity Reaction Status Date / Time No Known Drug Allergies Allergy Verified 02/09/24 08:33 Anes History & Medical History - Anesthetic History Anesthesia Complications: reports: No previous complications Family history of Anesthesia Complications: Denies Family history of Malignant Hyperthermia: Denies - Medical History Cardiovascular: reports: Hypertension, High cholesterol Pulmonary: reports: Sleep apnea, CPAP use Gastrointestinal: reports: GERD Urinary: reports: None Neuro: reports: None Musculoskeletal: reports: Chronic back pain Endocrine/Autoimmune: reports: HyPOthyroidism Blood Disorders: reports: None Skin: reports: None Smoking Status: Never smoker Psychosocial: reports: Alcohol, Cannabis History of Cancer?: No - Surgical History Gynecologic: reports: Breast reduction Exam General: Alert Dental: WNL Mouth Openin Fingerbreadth Neck Mobility: Normal Mallampati classification: II Thyromental Distance: less than 4 cm Respiratory: Lungs clear Cardiovascular: Regular rate Plan Anesthesia Type: General Consent for Procedure(s) Verified and Reviewed: Yes Code Status: Attempt Resuscitation ASA classification: 2-Mild systemic disease Is this case an emergency?: No
[2024-02-09] MEDS: LACTATED RINGERS 1,000 ML IV SCH (14:29)
[2024-02-09] MEDS ORDERED: LIDOCAINE 1%-EPI 1:100000 20 ML MDV ONE (14:42)
[2024-02-09] MEDS ORDERED: iohexoL-240 10 ML VIAL IVP ONE (14:42)
[2024-02-09] MEDS ORDERED: BUPIVACAINE 0.25% PF 30 ML VIAL ONE (14:43)
[2024-02-09] MEDS ORDERED: MIDAZOLAM 2 MG/2 ML VIAL ONE (15:41)
[2024-02-09] MEDS ORDERED: fentaNYL 100 MCG/2 ML VIAL ONE ×2 (15:41→18:01)
[2024-02-09] MEDS ORDERED: LIDOCAINE-PF 2% 10 ML AMP SUBQ ONE (15:42)
[2024-02-09] MEDS ORDERED: PROPOFOL 200 MG/20 ML VIAL IVP ONE ×2 (15:42→18:07)
[2024-02-09] MEDS ORDERED: ROCURONIUM 50 MG/5 ML VIAL ONE (15:42)
[2024-02-09] MEDS ORDERED: KETOROLAC 30 MG/ML VIAL ONE (16:25)
[2024-02-09] MEDS ORDERED: ePHEDrine 50 MG/ML VIAL IVP ONE (16:31)
[2024-02-09] MEDS: LIDOCAINE 1%-EPI 1:100000 20 ML MDV SUBQ ONE (16:50)
[2024-02-09] MEDS: BUPIVACAINE 0.25% PF 30 ML VIAL SUBQ ONE (16:50)
[2024-02-09] MEDS ORDERED: ACETAMINOPHEN 1,000 MG/100 ML 1,000 MG/100 ML BAG IV ONE (17:39)
[2024-02-09] MEDS ORDERED: SUGAMMADEX 200 MG/2 ML VIAL IVP ONE (17:58)
[2024-02-09] MEDS ORDERED: LACTATED RINGERS 1,000 ML IV SCH (18:12)
[2024-02-09] MEDS: LACTATED RINGERS 1,000 ML IV ONE ×2 (18:29→18:58)
--- NOTE | 2024-02-09 18:34 | OPERATIVE REPORT ---
Operative Report - General Procedure Date: 02/09/24 Planned Procedure: laparoscopic cholecystectomy Pre-Op Diagnosis: acute cholecystitis Procedure Performed: laparoscopic cholecystectomy Post Op Diagnosis: acute cholecystitis - Procedure Note Primary Surgeon: Keri Baca DO Anesthesia Provider: Martha Espinoza CRNA Anesthesia Technique: General ET tube, Local IV Fluids (mL): 750 Estimated Blood Loss (mL): 30 Indications: acute cholecystitis in the ED Findings: distended gallbladder, extremely edematous gallbladder wall, large 2cm stone impacted in the infindibulum Complications: none - Other Other Information/Narrative: Patient was brought to the operating room under universal protocol. She was placed supine on the operating room table. General anesthesia was induced by the SP[employer] LECTURER. She was positioned with the left arm tucked. No Curiel was placed. A final timeout was performed with all members of the team in agreement. The abdomen was prepped and draped in standard sterile fashion. The abdomen was entered via Abarca technique at the supraumbilical position. Local anesthetic was injected. the skin was incised sharply. the subcutaneous tissues were dissected bluntly down to the level of the fascia. a Dilia clamp was used to elevate the umbilicus and the supraumbilical fascia was incised vertically sharply. The peritoneal cavity was entered bluntly with a Carie forcep a blunt trocar was placed. The abdomen was insufflated to 15 mmHg with CO2 gas which the patient tolerated well. The laparoscope was introduced and under direct visualization 3 additional 5 mm trocars were placed in the following positions: Subxiphoid, right upper quadrant at the subcostal margin along the midclavicular line, and far lateral right upper quadrant at the subcostal margin. Patient was positioned with the head up in the right side elevated and graspers were introduced into the abdomen. The gallbladder was seen to be tensely distended and was aspirated with a laparoscopic needle revealing 80 cc of bile. After this the fundus was grasped and elevated cephalad over the liver edge. The infundibulum was grasped and retracted laterally. Hook electrocautery was used to incise the peritoneum over the medial and lateral edge of the gallbladder. The gallbladder wall was noted to be very edmatous and inflammed. 2 structures were seen entering the lower third of the gallbladder with the liver edge seen between these 2 structures representing the critical view of safety. The cystic artery was triply clipped and divided sharply between the clips. The cystic duct was triply clipped and divided sharply between the clips. The gallbladder was taken off of the liver bed using hook electrocautery. Bleeding on the hepatic fossa was controlled with hook electrocautery. The gallbladder was placed into an Endo Catch retrieval bag and removed through the umbilical port. Hemostasis was again ensured and clips were noted to be within proper position. The abdomen was irrigated and suctioned until irrigant returnd clear (bile had been spilled, no spillage of stones). The trocars were removed. the patient was positioned flat. The fascia at the umbilical incision was closed with an 0 Vicryl [id number] suture and the umbilical wound was irrigated with clean normal saline. The remainder of the local anesthetic was injected at all incision sites. The skin at all incisions was closed with a subcuticular 4-0 Monocryl suture followed by dressing application. The patient was then awoken from general anesthesia having tolerated the procedure well remained hemodynamically normal throughout the entirety of the case. She was transferred to the PACU in good condition. All sponge and needle counts were correct.
--- NOTE | 2024-02-09 19:07 | ANESTHESIA POST OP EVALUATION ---
Anesthesia Post Eval - Post Anesthesia Eval Vitals: Last Vital Signs Temp 37.4 C 02/09/24 18:45 Pulse 81 02/09/24 18:55 Resp 21 02/09/24 18:55 BP 121/58 L 02/09/24 18:55 Pulse Ox 95 02/09/24 18:55 O2 Flow Rate CV Function Including HR & BP: Stable Pain Control: Satisfactory Nausea & Vomiting: Negative Mental Status: Baseline Respiratory Status: Airway Patent Hydration Status: Satisfactory Anesthesia Complications: None
[2024-02-09] MEDS: PHENOL THROAT SPRAY 177 ML MM PRN (20:28)
[2024-02-09] MEDS: oxyCODONE 5 MG TABLET PO PRN (20:34)
[2024-02-10 07:33] VITALS: BP 138/60; O2SAT 96
[2024-02-10] MEDS: HYDROmorphone 0.5 MG/0.5 ML SYRINGE IVP PRN (11:10)
== END 2024-02-10 11:23 | disposition home or self-care (01) ==
LOC: ED 08:28 → SDS 12:20 → MS2 18:52 → SDS 02-10 11:23
PROVIDERS: ATTEND Surgery
PROC: 0FT44ZZ Resection of Gallbladder, Percutaneous Endoscopic Approach (ICD-10-PCS; principal; 2024-02-09 16:00)
DX: K80.12 Calculus of gallbladder with acute and chronic cholecystitis without obstruction (principal); E66.9 Obesity, unspecified; Z68.34 Body mass index [BMI] 34.0-34.9, adult; G47.30 Sleep apnea, unspecified; I10 Essential (primary) hypertension; E03.9 Hypothyroidism, unspecified
CPT/HCPCS: 36415; 47562; 76705; 80053; 81003; 83690; 85025; 96365; 96375; 99284; 99285; A9270; J0131; J1170; J7120; 81001; 87086; Q9966